=== PATIENT | female | born 1980 | race Caucasian/White ===

== ENCOUNTER 2016-08-15 03:21 | Inpatient (IN) | payer MEDICAID ==
[~2016-08-15] VITALS: Ht 162.6 cm; Wt 113.4 kg
--- NOTE | 2016-08-15 03:26 | NUR ---
PATIENT AMBULATED TO ER BED 04
[2016-08-15 03:29] VITALS: BP 146/77
--- NOTE | 2016-08-15 03:31 | NUR ---
36Y F BIB , C/O RUQ PAIN X 4 DAYS FOLLOWING ERCP PROCEDURE DONE AT [facility] WHICH REMOVED 3 STONES . PT DENIES DIARRHEA; SKIN IS PINK/WARM/DRY; AAOX4 WITH EVEN AND STEADY GAIT; LUNGS CLEAR BL; HR EVEN AND REGULAR; PT DENIES ANY FEVER, CP, SOB, OR COUGH AT THIS TIME; PATIENT STATES PAIN OF 8/10 AT THIS TIME; VSS; PATIENT POSITIONED FOR COMFORT; HOB ELEVATED; BEDRAILS UP X2; BED DOWN. ER MD MADE AWARE OF PT STATUS.
[2016-08-15] MEDS ORDERED: NACL 0.9% 1,000 ML IV ONE ×2 (03:43→04:55)
[2016-08-15] MEDS ORDERED: HYDROmorphone 1 MG/ML AMP IVP ONE ×2 (03:45→06:20)
[2016-08-15] MEDS ORDERED: ONDANSETRON 4 MG/2 ML VIAL IVP ONE ×2 (03:45→06:20)
--- NOTE | 2016-08-15 03:50 | NUR ---
Patient being evaluated by physician DR ROSARIO at bedside.
[2016-08-15] MEDS ORDERED: diphenhydrAMINE 50 MG/ML VIAL IVP ONE ×2 (05:00→06:45)
--- NOTE | 2016-08-15 06:54 | NUR ---
Patient will be admitted to care of . Admited to TELEMETRY. Will go to room 120B. Belongings list completed. Report to Nadira INGRAM
[2016-08-15 07:00] VITALS: BP 108/60
--- NOTE | 2016-08-15 07:00 | NUR ---
RECEIVED PT TO UNIT FROM ER. PT FULL CODE, ALLERGIES TO TORADOL, IV CONTRAST, AND MORPHINE. PT VS STABLE. PT IS A/O X 4, AMBULATORY. IV TO RAC AND R THIGH, INTACT AND PATENT. NO S/S OF CARDIAC/RESPIRATORY DISTRESS. PT CC OF RUQ ABD PAIN. SAFETY MEASURES IN PLACE, CALL LIGHT WITHIN REACH. WILL INITIATE PLAN OF CARE AND CONTINUE TO MONITOR.
--- NOTE | 2016-08-15 07:15 | NUR ---
PT REFUSED TELEMETRY MONITORING. PT STATES THE ELECTRODES IRRITATE HER SKIN. PT HAS NO S/S OF CARDIAC DISTRESS OR DISCOMFORT. PT HAS NO HX OF CARDIAC DISORDERS. MADE AWARE. PT WILL BE MED-SURG.
[2016-08-15] MEDS: HYDROmorphone 1 MG/ML AMP IVP PRN ×3 (09:37→15:53)
--- NOTE | 2016-08-15 09:40 | NUR ---
PT COMPLAINING OF 10/10 RUQ ABD PAIN. BP 122/77 HR 84. MEDICATED WITH DILAUDID. PT COMPLAINING OF ITCHINESS. WILL ADMINISTER BENADRYL. NO S/S OF ACUTE DISTRESS. CALL LIGHT WITHIN REACH. WILL CONTINUE TO MONITOR.
[2016-08-15] MEDS: NACL 0.9% 1,000 ML IV SCH ×2 (09:45→14:44)
[2016-08-15] MEDS ORDERED: diphenhydrAMINE 50 MG/ML VIAL IVP SCH ×2 (10:41→13:37)
[2016-08-15 12:00] VITALS: BP 130/60
--- NOTE | 2016-08-15 12:40 | NUR ---
PT AWAKE, NO S/S OF ACUTE DISTRESS. CALL LIGHT WITHIN REACH. WILL CONTINUE TO MONITOR.
--- NOTE | 2016-08-15 15:11 | NUR ---
PT IS AWAKE. NO S/S OF ACUTE DISTRESS OR DISCOMFORT. CALL LIGHT WITHIN REACH. WILL CONTINUE TO MONITOR.
[2016-08-15 16:00] VITALS: BP 142/83
--- NOTE | 2016-08-15 17:30 | NUR ---
PT STATES SHE WANTS TO LEAVE DUE TO HER GRANDMOTHER JUST . INFORMED PT OF RISKS. PT VERBALIZED UNDERSTANDING AND STILL WANTS TO LEAVE NOW. PT STATES SHE WILL NOT WAIT FOR THE DOCTOR. MADE AWARE. ARM BANDS REMOVED, IV REMOVED AND INTACT. PT IN STABLE CONDITION. ESCORTED PT TO FRONT LOBBY TO EXIT THE HOSPITAL.
== END 2016-08-15 17:30 | disposition left against medical advice (07) | DRG 282 ==
LOC: MED 03:21 → MTU 06:25
PROVIDERS: ADMIT Student in an Organized Health Care Education/Training Program; ATTEND Student in an Organized Health Care Education/Training Program
DX: K85.90 Acute pancreatitis without necrosis or infection, unspecified (principal); E66.2 Morbid (severe) obesity with alveolar hypoventilation; N39.0 Urinary tract infection, site not specified; Z68.41 Body mass index [BMI] 40.0-44.9, adult; E78.5 Hyperlipidemia, unspecified; Z53.29 Procedure and treatment not carried out because of patient's decision for other reasons; E02 Subclinical iodine-deficiency hypothyroidism; Z88.6 Allergy status to analgesic agent; Z90.49 Acquired absence of other specified parts of digestive tract; Z98.890 Other specified postprocedural states